=== PATIENT | female | born 1950 ===

== ENCOUNTER 2018-06-16 06:22 | Day surgery (SDC) | payer MEDICARE, OTHER ==
[2018-06-15 09:16] VITALS: BMI 28.3
[2018-06-16 06:53] VITALS: PULSE 90; RESP 20; TEMP 97.1; O2SAT 99
[2018-06-16] MEDS ORDERED: Lactated Ringer's 500 ML IV SCH (07:30)
[2018-06-16] MEDS ORDERED: Propofol 10 mg/ml Inj (20 ML) ONE (08:14)
[2018-06-16] MEDS ORDERED: Lactated Ringer's 1,000 ML IV ONE (08:45)
[2018-06-16 09:55] VITALS: BP 116/59
== END 2018-06-16 09:56 | disposition home or self-care (01) ==
LOC: C.ENDO 06:22
PROVIDERS: ATTEND Internal Medicine Gastroenterology
DX: D12.4 Benign neoplasm of descending colon (principal); K57.90 Diverticulosis of intestine, part unspecified, without perforation or abscess without bleeding
CPT/HCPCS: 45388; 82948; 88305; J2001; J2704; J7120